=== PATIENT | male | born 1945 | race Caucasian/White ===

== ENCOUNTER 2023-12-21 06:45 | Day surgery (SDC) | payer OTHER ==
[~2023-12-21] VITALS: Ht 188 cm; Wt 100.0 kg
[~2023-12-21 06:45] MED LIST: AMLODIPINE BESY10 MG PO; ARTHRITIS PAIN150 GM; ASMANEX110 MC1 INH; CREON DR 24,001 EACH PO; FLONASE ALLERG9.9 ML NAS; LIPITOR10 MG PO; LISINOPRIL5 MG PO; METFORMIN HCL500 MG PO; MONTELUKAST SOD10 MG PO; MUCINEX600 MG PO; OMEPRAZOLE20 M2 PO; STIOLTO RESPIMAT4 GM INH; TOPROL XL50 MG PO; TRAZODONE HCL100 MG PO; VENTOLIN HFA18 GM INH
[2023-12-21] MEDS ORDERED: LIDOCAINE HCL 1% 5 ML SDV INJ ONE (07:00)
[2023-12-21] MEDS ORDERED: IBLOOD GLUCOSE TEST STRIP 1 EA TEST VI PRN (07:00)
[2023-12-21] MEDS ORDERED: CEFAZOLIN SODIUM 2 GM/20 ML SYR IV SCH (07:00)
[2023-12-21] MEDS ORDERED: LACTATED RINGER'S 1,000 ML IV SCH (07:00)
[2023-12-21 07:23] VITALS: BP 141/68
--- NOTE | 2023-12-21 07:36 | NUR ---
VISITED DURING SPIRITUAL CARE ROUNDS. PT SUPPORTED BY DAUGHTER IN ROOM. STRONG RELATIONAL AND LUZ ELENA RESOURCES IN EVIDENCE. THROW OUT CLERK PROVIDED SUPPORTIVE PRESENCE, HOSPITALITY, PRAYER. PT AND DAUGHTER EXPRESSED GRATITUDE.
[2023-12-21 07:37] LABS: BASOPHILS, ABSOLUTE 0.1 %; EOSINOPHILS 4.2 % (0-6); EOSINOPHILS, ABSOLUTE 0.2; HEMATOCRIT 38.3 % (35.0-50.0); HEMOGLOBIN 12.7 g/dL (12.0-18.0); LYMPHOCYTES, ABSOLUTE 0.5; MCH 30.8 (27-36); MCHC 33.1 g/dl (30-36); MCV 93.1 fl (81-99); MONOCYTES 9.1 % (0-12); MONOCYTES, ABSOLUTE 0.4; NEUTROPHILS 71.7 % (39-80); NEUTROPHILS, ABSOLUTE 2.9; PLATELET COUNT 156 K/uL (140-440); RBC 4.11 M/ul (4.3-5.7)
[2023-12-21] MEDS ORDERED: ADULT ASPIRIN R81 MG PO (07:52)
[2023-12-21 08:03] LABS: INR 1.14 (0.80-1.30); PROTIME 14.2 Sec (11.2-14.2)
[2023-12-21] MEDS ORDERED: LIDOCAINE HCL 2% 5 ML SDV ONE (08:49)
[2023-12-21] MEDS ORDERED: propofoL 200 MG/20 ML VIAL ONE (08:49)
--- NOTE | 2023-12-21 09:53 | NUR ---
12/21/23 0953 Radha Sue 1842-PATIENT ARRIVED TO PACU ON RA RR EVEN. PATIENT LAYING LEFT LATERAL ABDOMEN ROUND AND SOFT. REACTIVE TO VERBAL STIMULI ORIENTED TO PACU AND DOZES BACK TO SLEEP. SR WITH PVC. IVF INFUSING
[2023-12-21 10:17] VITALS: BP 149/81
--- NOTE | 2023-12-21 13:14 | OR ---
[facility] [address], [place] [address] Signed DATE OF OPERATION: 12/21/2023 SURGEON: Braden Urias MD PREOPERATIVE DIAGNOSES: 1. Gastric bypass in 2006 with chronic diarrhea. 2. Weight loss. 3. History of pancreatitis, pancreatic atrophy and pancreatic cyst. 4. Generalized abdominal pain. 5. Hiatal hernia. 6. Hepatosplenomegaly. POSTOPERATIVE DIAGNOSES: 1. Long gastric tubular pouch. 2. GE junction at 40 cm. 3. Minimal gastritis. 4. 5 mm polyp at 8 cm in the rectum (snare). 5. 4 mm polyp at 10 cm in the rectum. 6. 4 mm polyp at 18 cm in the rectum. 7. Minimal sigmoid diverticulosis. 8. Long redundant colon. 9. Tortuous sigmoid and left colon. PROCEDURES: 1. EGD with CLOtest and biopsies of the gastric pouch. 2. Colonoscopy with snare polypectomy and hot biopsy. ESTIMATED BLOOD LOSS: None. INDICATIONS: Omer is an 78-year-old gentleman, who is significantly disabled, asked to see me for upper and lower endoscopy. He has had his appendix and gallbladder out many years ago. He went through gastric bypass in 2006 at [facility] in [place], [place]. He now has chronic diarrhea. He said he initially lost a lot of weight. He had gained some of that weight back. Now he is unintentionally losing some weight once again. He had been to his primary care provider. His upper and lower endoscopy in [address] Sommers were both negative. He had some pancreatitis at that time. He is now known to have some pancreatic atrophy along with some pancreatic cyst. He has been on pancreatic enzyme replacement therapy and that has been helping. He also has vague Electronically Signed By: BRADEN URIAS MD 12/21/23 1314 PATIENT NAME: OMER MENDIOLA JR OPERATIVE REPORT DATE OF : 41 REPORT #: [id number] PHYSICIAN: BRADEN URIAS MD PCP: NO PRIMARY CARE PHYSICIAN REPORT IS CONFIDENTIAL AND NOT TO BE RELEASED WITHOUT AUTHORIZATION [facility] [address], [place] [address] Signed generalized abdominal pain. His CT scan of the abdomen and pelvis in June of 2023 at the [facility] in [place], [place] was said to be unremarkable other than possibly a hiatal hernia, pancreatic atrophy and small pancreatic cyst all measuring less than 1.4 cm in diameter. He tells me that the MRI was performed at [facility] in the last few months of his pancreas. I do not have that report. 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 Apparently, this goes back to 2018 as well. He seems to have hepatomegaly measuring 17 cm and splenomegaly measuring 14.8 cm. He said the pancreatic enzyme replacement has really helped the diarrhea. He and his both came into the office using wheeled walkers. He also talks about significant sleep apnea and COPD and other issues. Consequently, he really needed a monitored anesthesia care today with propofol infusion. He did receive preoperative blood work and an EKG in that regard. In the office, I had given him pamphlets on both upper and lower endoscopy. We reviewed the nature of the two tests. There is risk including, but not limited to gas bloating, crampy abdominal pain, bleeding, perforation requiring surgery, and missed diagnosis. We also reviewed the written instructions for a bowel prep line by line. We let him start the bowel prep at about 11:00 a.m. because of the gastric bypass. Apparently that went well. He and his had expressed understanding and wished to proceed. PROCEDURE IN DETAIL: Omer was taken into our endoscopy suite and placed in the supine semi-recumbent position. He was given monitored anesthesia care with propofol infusion per our nurse coffee urn attendant. A bite block was utilized for the case. The adult gastroscope was introduced and we found his GE junction at 40 cm. He is a tall man at 6 foot 1 inch tall. We went into a long tubular gastric pouch which is a bit unusual. We looked at it carefully and in fact, he does have a Gunner-en-Y limb. We went to the blind end of the limb and janeth and went down the Gunner limb as far as we could go. The anastomosis was quite healthy without stricture or any ulcerations or granulation tissue, etc. He had a tiny bit of irritation in the gastric pouch. We went ahead and took a biopsy of the gastric pouch for CLOtest as well as pathologic review. The scope was then slowly withdrawn. He really has little if any disruption to his Z-line. There was no Garg's mucosa. No distal esophagitis. The middle and upper esophagus were unremarkable. We saw no gastric or esophageal varices. After this, the gas was suctioned out and the gastroscope removed. Omer tolerated his upper endoscopy quite well. Omer was rotated into the left lateral decubitus position. He was maintained on monitored anesthesia care with propofol infusion per our nurse coffee urn attendant. A digital rectal exam was performed. This was unremarkable. He had no external hemorrhoids. He had good sphincter tone. There were no masses. The adult colonoscope was introduced and advanced under direct visualization of the camera. Omer is a large man. He has a very large compliant abdomen. We worked our way carefully up through a tortuous sigmoid Electronically Signed By: BRADEN URIAS MD 12/21/23 1314 PATIENT NAME: OMER MENDIOLA JR OPERATIVE REPORT DATE OF : 41 REPORT #: [id number] PHYSICIAN: BRADEN URIAS MD PCP: NO PRIMARY CARE PHYSICIAN REPORT IS CONFIDENTIAL AND NOT TO BE RELEASED WITHOUT AUTHORIZATION [facility] [address], [place] [address] Signed and left colon. We needed abdominal compression just to get to the hepatic flexure and finally we made it down into the cecum itself. We could easily see the appendiceal orifice. We could also see the ileocecal valve. The scope was then slowly withdrawn. Overall, his prep was good. He can always use more prep in the future. He has a very long redundant colon that was very evident on the way back as well. Also, the tortuous left and sigmoid colon. He had just a few diverticula in the sigmoid colon. He had several polyps in his rectum. We used the snare at 8 cm and the hot biopsy at the other two locations. The scope was then retroflexed and there was no additional pathology noted above the anal canal. After this, the gas was suctioned out and the colonoscope removed. Omer tolerated the lower endoscopy quite well. RECOMMENDATIONS: I will see Omer back in my office in 7 to 14 days to review his results. It looks like he is doing better with his pancreatic enzyme replacement therapy. Braden Urias MD ALB/MODL /[id number] cc: Braden Urias MD [facility] in [place], [place] Copies: BRADEN URIAS MD ~ Electronically Signed By: BRADEN URIAS MD 12/21/23 1314 PATIENT NAME: MAURYOMER JAKE OPERATIVE REPORT DATE OF : 41 REPORT #: [id number] PHYSICIAN: BRADEN URIAS MD PCP: NO PRIMARY CARE PHYSICIAN REPORT IS CONFIDENTIAL AND NOT TO BE RELEASED WITHOUT AUTHORIZATION
--- NOTE | 2023-12-23 17:44 | PATH ---
[facility] [address], [place] [address] Signed SPECIMEN(S): A STOMACH BIOPSY SPECIMEN(S): B RECTAL POLYP AT 8 CM SPECIMEN(S): C RECTAL POLYP AT 10 CM SPECIMEN(S): D RECTAL POLYP AT 18 CM SPECIMEN SOURCE: A. STOMACH BIOPSY B. RECTAL POLYP AT 8 CM C. RECTAL POLYP AT 10 CM D. RECTAL POLYP AT 18 CM CLINICAL HISTORY: Diarrhea, abdominal pain, GERD, hiatal hernia, weight loss, gastritis, long redundant tortuous colon, diverticulosis, rectal polyps FINAL PATHOLOGIC DIAGNOSIS: A. Stomach biopsy: - Benign gastric mucosa with focal slight chronic inflammation. - Negative for evidence of Helicobacter organisms on routine HE-stained sections. B. Rectal polyp at 8 cm: - Tubular adenoma (one fragment). - Hyperplastic polyp (one fragment). C. Rectal polyp at 10 cm: - Hyperplastic polyp (one fragment). D. Rectal polyp at 18 cm: - Hyperplastic polyp (two fragments). JVR:yemi MICROSCOPIC EXAMINATION: Histologic sections of all submitted blocks are examined by light microscopy. These findings, together with the gross examination, support the pathologic diagnosis. GROSS DESCRIPTION: A. The specimen, labeled and designated "Maury, stomach biopsy," is received in formalin and consists of one lyles soft tissue fragment, 0.4 cm. Entirely submitted in (A1). B. The specimen, labeled and designated "Maury, rectal polyp at 8 cm," is received in formalin and consists of one lyles soft tissue fragment, 0.7 cm. Entirely submitted in (B1). PATIENT NAME: JADEN MENDIOLA JR PATHOLOGY DATE OF : 41 REPORT #: [id number] PHYSICIAN: TRIXIE LUNA PCP: NO PRIMARY CARE PHYSICIAN REPORT IS CONFIDENTIAL AND NOT TO BE RELEASED WITHOUT AUTHORIZATION [facility] [address], [place] [address] Signed C. The specimen, labeled and designated "Maury, rectal polyp at 10 cm," is received in formalin and consists of one lyles soft tissue fragment, 0.2 cm. Entirely submitted in (C1). D. The specimen, labeled and designated "Maury, rectal polyp at 18 cm," is received in formalin and consists of two lyles soft tissue fragments, ranging from 0.2-0.3 cm. Entirely submitted in (D1). VB (under the direct supervision of a pathologist) The Gross Description was prepared using a voice recognition system. The report was reviewed for accuracy; however, sound-alike word errors, addition and/or deletions may occur. If there is any question about this report, please contact Client Services. PERFORMING LABORATORY: Technical component was performed by [facility], [address] [place] [id number] (CLIA# [id number]). Professional interpretation was performed by [facility], [address] [place] [id number] (CLIA#: [id number]). Diagnostician: Charlie Jason MD Pathologist Electronically Signed 12/23/2023 Copies: ~ PATIENT NAME: MAURYJADEN PATHOLOGY DATE OF : 41 REPORT #: [id number] PHYSICIAN: TRIXIE PATHOLOGY PCP: NO PRIMARY CARE PHYSICIAN REPORT IS CONFIDENTIAL AND NOT TO BE RELEASED WITHOUT AUTHORIZATION
== END 2023-12-21 10:30 | disposition home or self-care (01) ==
LOC: DS 06:45
PROVIDERS: ATTEND Colon & Rectal Surgery
PROC: 0DB68ZX Excision of Stomach, Via Natural or Artificial Opening Endoscopic, Diagnostic (ICD-10-PCS; principal; 2023-12-21 09:00)
PROC: 0DBP8ZZ Excision of Rectum, Via Natural or Artificial Opening Endoscopic (ICD-10-PCS; 2023-12-21 09:00)
DX: K29.50 Unspecified chronic gastritis without bleeding (principal); D12.8 Benign neoplasm of rectum; K63.89 Other specified diseases of intestine; K57.30 Diverticulosis of large intestine without perforation or abscess without bleeding; K31.4 Gastric diverticulum; K52.9 Noninfective gastroenteritis and colitis, unspecified; I10 Essential (primary) hypertension; J44.9 Chronic obstructive pulmonary disease, unspecified; K21.9 Gastro-esophageal reflux disease without esophagitis; I25.10 Atherosclerotic heart disease of native coronary artery without angina pectoris; E78.5 Hyperlipidemia, unspecified; E11.42 Type 2 diabetes mellitus with diabetic polyneuropathy; G47.33 Obstructive sleep apnea (adult) (pediatric); R16.0 Hepatomegaly, not elsewhere classified; E66.9 Obesity, unspecified; Z68.31 Body mass index [BMI] 31.0-31.9, adult; Z98.84 Bariatric surgery status
CPT/HCPCS: 00813; 36415; 85025; 85610; 87077; J0690; J2001; J2704; J7121